=== PATIENT | male | born 1995 | race Caucasian/White ===

== ENCOUNTER 2017-10-08 09:52 | Emergency (ER) | payer OTHER ==
[~2017-10-08] VITALS: Ht 185.4 cm; Wt 79.4 kg
[~2017-10-08 09:52] MED LIST: BACTRIM DS TAB1 EACH PO; BACTROBAN CREAM30 GM TOP; VYVANSE30 MG PO
[2017-10-08] MEDS ORDERED: NAPROSYN500 MG PO (10:22)
[2017-10-08] MEDS ORDERED: CLEOCIN HCL150 MG PO (10:22)
[2017-10-08 10:28] VITALS: BP 160/80
== END 2017-10-08 10:29 | disposition home or self-care (01) ==
LOC: M.ERS 09:52
DX: K02.9 Dental caries, unspecified (principal); F19.90 Other psychoactive substance use, unspecified, uncomplicated; F90.9 Attention-deficit hyperactivity disorder, unspecified type; Z88.0 Allergy status to penicillin

== ENCOUNTER 2020-02-14 07:29 | Emergency (ER) | payer BC ==
[~2020-02-14] VITALS: Ht 185.4 cm; Wt 83.9 kg
[~2020-02-14 07:29] MED LIST changes: +CLEOCIN HCL150 MG PO; +NAPROSYN500 MG PO
[2020-02-14 08:08] LABS: URINE BILIRUBIN NEGATIVE (Negative); URINE BLOOD 1+ (Negative); URINE CLARITY CLEAR; URINE COLOR YELLOW; URINE GLUCOSE-RANDOM NEGATIVE (Negative); URINE KETONES NEGATIVE (Negative); URINE LEUKOCYTES-REFLEX 1+ (Negative); URINE NITRITE-REFLEX NEGATIVE (Negative); URINE PROTEIN NEGATIVE (Negative); URINE UROBILINOGEN 0.2 E.U./dl (0.2-1.0)
[2020-02-14 08:16] LABS: SQUAMOUS 0-3 Few /LPF (0-3); URINE RBC 0-2 Rare /HPF (0-2); URINE WBC-REFLEX 6-15 Few /HPF (0-5)
[2020-02-14 08:17] LABS: BACTERIA-REFLEX 1-9 Few /HPF (None Seen); CASTS None Seen /LPF (None Seen); CRYSTALS None Seen /LPF (None Seen); MUCUS 0-3 Light strn/LPF (None Seen)
[2020-02-14] MEDS ORDERED: NORCO 5-325 TA1 EAC2 PO (08:53)
[2020-02-14] MEDS ORDERED: CIPROFLOXACIN500 M1 PO (08:53)
[2020-02-14 09:21] VITALS: BP 131/78
== END 2020-02-14 09:22 | disposition home or self-care (01) ==
LOC: M.ERS 07:29
PROVIDERS: Family Medicine
DX: N45.1 Epididymitis (principal); F90.9 Attention-deficit hyperactivity disorder, unspecified type; F17.210 Nicotine dependence, cigarettes, uncomplicated; Z88.1 Allergy status to other antibiotic agents